=== PATIENT | male | born 1950 | race Caucasian/White ===

== ENCOUNTER → 2018-03-07 | Outpatient (CLI) | payer MEDICARE, OTHER | LOC: ZCOL.LAB 14:29 | DX: I89.0 Lymphedema, not elsewhere classified (principal); R60.0 Localized edema ==

== ENCOUNTER 2018-07-16 16:00 | Outpatient (RCR) | payer MEDICARE, OTHER | END 2018-07-24 | disposition home or self-care (01) | LOC: MKS.ESL.PT | DX: I89.0 Lymphedema, not elsewhere classified (principal); I87.2 Venous insufficiency (chronic) (peripheral); E11.9 Type 2 diabetes mellitus without complications; E66.01 Morbid (severe) obesity due to excess calories; Z68.1 Body mass index [BMI] 19.9 or less, adult; Z79.84 Long term (current) use of oral hypoglycemic drugs; Z79.899 Other long term (current) drug therapy ==

== ENCOUNTER 2018-10-24 15:30 | Outpatient (RCR) | payer MEDICARE, OTHER | END 2018-11-10 | LOC: MKS.ESL.PT | DX: I89.0 Lymphedema, not elsewhere classified (principal) ==

== ENCOUNTER 2018-12-22 14:45 | Outpatient (RCR) | payer MEDICARE, OTHER | END 2018-12-23 08:17 | disposition home or self-care (01) | LOC: MKS.ESL.PT 14:45 | DX: I89.0 Lymphedema, not elsewhere classified (principal) ==

== ENCOUNTER 2021-06-02 15:45 | Outpatient (RCR) | payer MEDICARE, OTHER | END 2021-06-05 | disposition home or self-care (01) | LOC: WSPT | DX: I89.0 Lymphedema, not elsewhere classified (principal) ==

== ENCOUNTER 2021-06-28 11:15 | Outpatient (RCR) | payer MEDICARE, OTHER | END 2021-07-06 | disposition still patient (30) | LOC: WSPT | DX: I89.0 Lymphedema, not elsewhere classified (principal) ==